=== PATIENT | female | born 1995 | race Caucasian/White ===

== ENCOUNTER 2017-03-13 15:15 | Observation (INO) | payer OTHER ==
[~2017-03-13] VITALS: Ht 160 cm; Wt 96.6 kg
[2017-03-18] MEDS ORDERED: IBUP-1480 PO (09:40)
== END 2017-03-13 17:44 | disposition home or self-care (01) ==
LOC: SPU 15:15
PROVIDERS: ADMIT Obstetrics & Gynecology; ATTEND Obstetrics & Gynecology
DX: O26.853 Spotting complicating pregnancy, third trimester (principal); Z3A.40 40 weeks gestation of pregnancy
CPT/HCPCS: 81002; G0378

== ENCOUNTER 2017-03-16 01:44 | Observation (INO) | payer OTHER ==
[2017-03-16] MEDS ORDERED: KETOROLAC TROMETHAMINE 30 MG VIAL ONE (03:56)
[2017-03-18] MEDS ORDERED: IBUP-1480 PO (09:40)
== END 2017-03-16 08:09 | disposition home or self-care (01) ==
LOC: SPU 01:44
DX: O62.8 Other abnormalities of forces of labor (principal); Z3A.40 40 weeks gestation of pregnancy; Z28.21 Immunization not carried out because of patient refusal
CPT/HCPCS: 81002; G0378; J1885